=== PATIENT | male | born 1965 | race Hispanic/Latino ===

== ENCOUNTER 2020-06-16 09:59 | Observation (INO) | payer OTHER ==
[2020-06-16] MEDS ORDERED: LACTATED RINGERS 1,000 ML ONE (11:20)
[2020-06-16] MEDS ORDERED: HYDROmorphone 1 MG/1 ML INJ IV PRN ×2 (11:57)
[2020-06-16] MEDS ORDERED: ONDANSETRON 4 MG/2 ML INJ IV PRN (11:57)
--- NOTE | 2020-06-16 11:58 | Anesthesia Day of Surgery ---
Anesthesia Day of Surgery - Day of Surgery Patient Examined: Yes Patient H&P Reviewed: Yes Patient is NPO: Yes
--- NOTE | 2020-06-16 11:59 | Anesthesia Consultation ---
Anesthesia Consult and Med Hx Date of service: 06/16/20 - Airway Anesthetic Teeth Evaluation: Poor, Chipped, Crowns ROM Head & Neck: Adequate Mental/Hyoid Distance: Adequate Mallampati Class: Class II Intubation Access Assessment: Good - Pre-Operative Health Status ASA Pre-Surgery Classification: ASA2 Proposed Anesthetic Plan: General - Pulmonary Hx Respiratory Symptoms: No (+2FS) - Gastrointestinal Hx Gastroesophageal Reflux Disease: Yes - Endocrine Hx Renal Disease: Yes (stones) - Other Systems Hx Obesity: No
[2020-06-16] MEDS ORDERED: LACTATED RINGERS 1,000 ML IV SCH (12:00)
[2020-06-16] MEDS ORDERED: ceFAZolin/STERILE WATER 2 GM/20 ML SYRINGE IV NR (12:44)
[2020-06-16] MEDS ORDERED: GLYCOPYRROLATE 0.4 MG/2 ML INJ ONE (16:13)
[2020-06-16] MEDS ORDERED: PHENYLEPHRINE/NS 1,000 MCG/10 ML SYRINGE (OR USE) IV ONE (16:13)
[2020-06-16] MEDS ORDERED: LIDOCAINE MPF (2%) 20 MG/1 ML VIAL 5 ML ONE (16:13)
[2020-06-16] MEDS ORDERED: ONDANSETRON 4 MG/2 ML INJ ONE (16:13)
[2020-06-16] MEDS ORDERED: SUCCINYLCHOLINE CHLORIDE 200 MG/10 ML INJ MDV ONE (16:13)
[2020-06-16] MEDS ORDERED: propofoL 200 MG/20 ML VIAL IV ONE (16:13)
[2020-06-16] MEDS ORDERED: dexAMETHasone 20 MG/5 ML VIAL ONE (16:13)
[2020-06-16] MEDS ORDERED: fentaNYL 100 MCG/2 ML INJ ONE (16:13)
[2020-06-16] MEDS ORDERED: ONDANSETRON 4 MG ODT TAB PO PRN (16:39)
[2020-06-16] MEDS ORDERED: ZOLPIDEM 5 MG TAB PO PRN (16:39)
--- NOTE | 2020-06-16 16:39 | Post Operative Note ---
Date of procedure: 06/16/20 Pre-op diagnosis: l ureterl stone large Post-op diagnosis: same Findings: as above Procedure: cysto rpg Anesthesia: GETA Surgeon: BERNADETTE CHEN Estimated blood loss: none Pathology: none Specimen disposition: to lab Condition: stable
[2020-06-16] MEDS ORDERED: IOHEXOL 300 MG/ML 100ML IV ONE (16:46)
[2020-06-16] MEDS ORDERED: WATER FOR IRRIG STERILE 2000 ML IR ONE (16:51)
--- NOTE | 2020-06-16 17:47 | Fluoroscopy Report ---
INTRAOPERATIVE FLUOROSCOPY: RETROGRADE UROGRAPHY INDICATION / CLINICAL INFORMATION: HYDRONEPHROSIS/ URETERAL STONE. TECHNIQUE: Intraoperative spot images were obtained during the procedure. FINDINGS: Images show retrograde pyelogram on the left with a large left ureteral stone. 15 cc Omnipaque 300 us ed. See operative/procedure note by performing physician for full details. Fluoroscopy Time: 3.1 minutes. Fluoroscopy Images: 4. Signer Name: Simba Charles MD Signed: 06/16/2020 5:43 PM Workstation Name: [id number]
--- NOTE | 2020-06-16 18:11 | Operative Report ---
PREOPERATIVE DIAGNOSIS: Huge left mid ureteral stone, previous upper ureteral stone. POSTOPERATIVE DIAGNOSES: Huge left mid ureteral stone, previous upper ureteral stone with severe impaction and hydronephrosis. PROCEDURE: Cystoscopy, attempted stent. SURGEON: Dr. Irwin. ANESTHESIA: General. FINDINGS: This is a gentleman with large stone, really no pain, history of prostate cancer. All options were discussed. He has had this for I suspect very long time. DESCRIPTION OF PROCEDURE: The patient was brought to the operating table. Following induction of anesthesia, placed in lithotomy position, prepped and draped in usual sterile fashion. Cystourethroscopy showed no bladder lesions. Retrograde showed severe obstruction, but there was dye that went above it. We using an open-ended, we got up to the stone and tried with a Glidewire to get past the stone. Almost immediately coiled back around the stone and there was a little extravasation. We tried even with two 5 wire. Within 2-3 minutes, we saw that it would be too difficult likely did not want to injure the ureter, so we backed out. I had spoken to Dr. 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 This is a chronically hydronephrotic kidney. Once we get the __ tube and we could see whether or not it is salvageable and if there is function in the kidney. Otherwise, he may need a nephrectomy versus an ureterolithotomy or percutaneous nephrolithotomy. He tolerated the procedure well, but he will need antibiotics and percutaneous procedures and then a nuclear scan. JOB# [id number] [facility]
--- NOTE | 2020-06-16 19:03 | Post Anesthesia Evaluation ---
- Post Anesthesia Evaluation Patient Participated: Yes Airway Patent: Yes Stable Respiratory Function: Yes Nausea/Vomiting: No Temp > 96.8F: Yes Pain Manageable: Yes Adequeate Hydration: Yes Anesthesia Complications: No Block Receding Appropriately: Not Applicable Patient on Ventilator: No
--- NOTE | 2020-06-16 22:33 | Event Note ---
Date: 06/16/[address] Irwin Ordered CT abdomen and pelvis without contrast in prone positioning for planning. NPO after MN except sips of water with meds.
[2020-06-16] MEDS: NACL 0.45%/KCL 20 MEQ 20 MEQ/1,000 ML BAG IV SCH (22:44)
[2020-06-16] MEDS: DOCUSATE SODIUM 100 MG CAP PO SCH (22:45)
[2020-06-16] MEDS: ceFAZolin/NS 1 GM/50 ML 1 GM/50 ML BAG IV SCH (23:13)
--- NOTE | 2020-06-17 03:55 | Cat Scan Report ---
CT ABDOMEN AND PELVIS WITHOUT CONTRAST INDICATION / CLINICAL INFORMATION: Renal Calculi, please do in prone position, PCNU for PCNL. TECHNIQUE: Axial CT images were obtained through the abdomen and pelvis without IV contrast. All CT scans at this location are performed using CT dose reduction for ALARA by means of automated exposure control. COMPARISON: Retrograde urogram 06/16/20 FINDINGS: LOWER CHEST: No significant abnormality. LIVER: No significant abnormality. GALLBLADDER: No significant abnormality. BILE DUCTS: No significant abnormality. PANCREAS: No significant abnormality. SPLEEN: No significant abnormality. ADRENALS: No significant abnormality. RIGHT KIDNEY / URETER: No significant abnormality. LEFT KIDNEY / URETER: 8 mm obstructing stone in the mid left ureter with moderate left hydroureterone phrosis. STOMACH / SMALL BOWEL: No significant abnormality. COLON: No significant abnormality. Cecum is located in the left mid abdomen. APPENDIX: No significant abnormality. PERITONEUM: No free fluid. No free air. No fluid collection. LYMPH NODES: No significant adenopathy. AORTA / ARTERIES: No significant abnormality. IVC / VEINS: No significant abnormality. URINARY BLADDER: Multiple tiny calcifications along the anterior, and dependent portion of the urinar y bladder (patient in the prone position). REPRODUCTIVE ORGANS: No significant abnormality. ADDITIONAL FINDINGS: Small, bilateral, fat-containing inguinal hernias. SKELETAL SYSTEM: No significant abnormality. IMPRESSION: 1. 8 mm obstructing stone in the left mid ureter with moderate left hydroureteronephrosis. 2. Multiple tiny calcifications in the urinary bladder. Signer Name: Radha Martel MD Signed: 06/17/2020 3:51 AM Workstation Name: [id number]
[2020-06-17] MEDS: ceFAZolin/NS 1 GM/50 ML 1 GM/50 ML BAG IV SCH (06:01)
[2020-06-17] MEDS ORDERED: LIDOCAINE 2%/EPINEPHRINE 1:200,000 VIAL (20 ML) INFILTRATI ONE (09:09)
--- NOTE | 2020-06-17 09:25 | Progress Note ---
Assessment and Plan chronic obst ct noted for perc get nuc scan Subjective Date of service: 06/17/20 Principal diagnosis: hydro LEFT Objective - Constitutional Vitals: Vital Signs - 12hr 06/16/20 06/17/20 06/17/20 21:27 00:41 05:43 Temperature 98.5 F 98.2 F Pulse Rate 57 L 54 L Respiratory 18 18 Rate Blood Pressure 102/50 117/70 O2 Sat by Pulse 94 95 93 Oximetry 06/17/20 06/17/20 07:46 08:08 Temperature 98.2 F Pulse Rate 61 Respiratory 16 Rate Blood Pressure 135/86 O2 Sat by Pulse 96 96 Oximetry General appearance: Present: no acute distress - Respiratory Respiratory effort: normal - Gastrointestinal General gastrointestinal: Present: non-tender Medications & Allergies - Medications Allergies/Adverse Reactions: Allergies ciprofloxacin [From Cipro] Allergy (Verified 06/16/20 11:46) Swelling Home Medications: Home Medications Medication Instructions Recorded Confirmed Last Taken Type No Known Home Medications [No 06/16/20 06/16/20 Unknown History Reported Home Medications] Active Medications: Generic Name Dose Route Start Last Admin Trade Name Freq PRN Reason Stop Dose Admin Hydrocodone Bitart/Acetaminophen 2 each 06/16/20 16:39 Hydrocodone/Acetaminophen 5-325 Mg Tab PO Q4H PRN Pain, Moderate (4-6) Docusate Sodium 100 mg 06/16/20 22:00 06/16/20 22:45 Docusate Sodium 100 Mg Cap PO 100 mg BID JAVAD Administration Hydromorphone HCl 0.25 mg 06/16/20 11:57 Hydromorphone 1 Mg/1 Ml Inj IV 06/17/20 11:56 Q10MIN PRN Pain, Moderate (4-6) Hydromorphone HCl 0.5 mg 06/16/20 11:57 06/16/20 23:30 Hydromorphone 1 Mg/1 Ml Inj IV 06/17/20 11:56 0.5 mg Q10MIN PRN Administration Pain , Severe (7-10) Lactated Ringer's 1,000 mls @ 125 mls/hr 06/16/20 12:00 06/16/20 11:30 Lactated Ringers IV 125 mls/hr DIRECT JAVAD Administration Potassium Chloride/Sodium Chloride 20 meq in 1,000 mls @ 125 mls/hr 06/16/20 18:00 02/08/21 22:44 Ns 0.45/Kcl 20meq IV 125 mls/hr DIRECT JAVAD Administration Ondansetron HCl 4 mg 06/16/20 11:57 Ondansetron 4 Mg/2 Ml Inj IV ONCE PRN Nausea And Vomiting Ondansetron HCl 4 mg 06/16/20 16:39 Ondansetron 4 Mg Odt Tab PO Q8H PRN Nausea And Vomiting Zolpidem Tartrate 5 mg 06/16/20 16:39 Zolpidem 5 Mg Tab PO QHS PRN Sleep
[2020-06-17] MEDS: DOCUSATE SODIUM 100 MG CAP PO SCH (09:48)
[2020-06-17] MEDS: FAMOTIDINE 20 MG/2 ML INJ IV SCH (09:53)
[2020-06-17 11:26] LABS: Basophils % (Auto) 0.1 % (0.0-1.8); Hemoglobin 14.8 gm/dl (11.8-15.2); Lymphocytes % (Auto) 6.8 % (13.4-35.0); Mean Corpuscular HGB Conc 34 % (32-34); Mean Corpuscular Volume 93 fl (84-94); Monocytes # (Auto) 0.8 K/mm3 (0.0-0.8); Monocytes % (Auto) 5.3 % (0.0-7.3); Platelet Count 226 K/mm3 (140-440); Red Cell Distribution Width 13.3 % (13.2-15.2)
[2020-06-17 11:32] LABS: Calcium 10.1 mg/dL (8.4-10.2)
[2020-06-17] MEDS ORDERED: SODIUM CHLORIDE IRRI 500 ML 500 ML IR ONE (11:34)
[2020-06-17 11:37] LABS: INR 1.04 (0.87-1.13)
[2020-06-17 11:38] LABS: Partial Thromboplastin Time 27.2 Sec. (24.2-36.6)
[2020-06-17] MEDS ORDERED: SODIUM CHLORIDE 0.9% 500 ML 500 ML ONE (11:46)
--- NOTE | 2020-06-17 11:59 | Consultation ---
History of Present Illness - Reason for Consult Consult date: 06/17/20 renal cauli, hydronephrosis Requesting physician: BERNADETTE CHEN - History of Present Illness 55-year-old male with history of prostate cancer, tobacco abuse, renal calculi who presents with left large mid ureteral calculi status post unsuccessful cystoscopic attempt at passing a ureteral stent. Vascular interventional radiology consulted for nephrostomy tube placement. CT of the abdomen pelvis was ordered demonstrating a large left mid ureteral calculi with hydronephrosis. Upon my review, there appeared to be focal scarring of the kidney especially in the lower pole. Patient has left scrotal referred pain from his left mid ureteral calculi. No significant flank pain. Also has some referred pelvic pain. Past History Past Medical History: cancer (Prostate), other (Mild CKD, renal calculi, hydronephrosis) Past Surgical History: Other (Noncontributory) Social history: smoking Family history: other (Noncontributory) Medications and Allergies Allergies Allergy/AdvReac Type Severity Reaction Status Date / Time ciprofloxacin [From Cipro] Allergy Swelling Verified 06/16/20 11:46 Home Medications Medication Instructions Recorded Confirmed Last Taken Type No Known Home Medications [No 06/16/20 06/16/20 Unknown History Reported Home Medications] Active Meds: Active Medications Hydrocodone Bitart/Acetaminophen (Hydrocodone/Acetaminophen 5-325 Mg Tab) 2 each PO Q4H PRN PRN Reason: Pain, Moderate (4-6) Docusate Sodium (Docusate Sodium 100 Mg Cap) 100 mg PO BID [facility] Last Admin: 06/17/20 09:48 Dose: Not Given Documented by: Famotidine (Famotidine 20 Mg/2 Ml Inj) 20 mg IV QDAY [facility] Last Admin: 06/17/20 09:53 Dose: 20 mg Documented by: Famotidine (Famotidine 20 Mg/2 Ml Inj) 20 mg IV ONCE [facility] Stop: 06/17/20 14:00 Lactated Ringer's (Lactated Ringers) 1,000 mls @ 125 mls/hr IV DIRECT [facility] Last Admin: 06/16/20 11:30 Dose: 125 mls/hr Documented by: Potassium Chloride/Sodium Chloride (Ns 0.45/Kcl 20meq) 20 meq in 1,000 mls @ 125 mls/hr IV DIRECT [facility] Last Admin: 06/16/20 22:44 Dose: 125 mls/hr Documented by: Piperacillin Sod/Tazobactam Sod (Zosyn/Ns 3.375gm/50ml) 3.375 gm in 50 mls @ 100 mls/hr IV ONCE ONE; Protocol Stop: 06/17/20 12:29 Ondansetron HCl (Ondansetron 4 Mg/2 Ml Inj) 4 mg IV ONCE PRN PRN Reason: Nausea And Vomiting Ondansetron HCl (Ondansetron 4 Mg Odt Tab) 4 mg PO Q8H PRN PRN Reason: Nausea And Vomiting Zolpidem Tartrate (Zolpidem 5 Mg Tab) 5 mg PO QHS PRN PRN Reason: Sleep Review of Systems All systems: negative (see HPI) Exam - Constitutional Vitals: Temp Pulse Resp BP Pulse Ox 98.2 F 61 16 135/86 96 06/17/20 07:46 06/17/20 07:46 06/17/20 07:46 06/17/20 07:46 06/17/20 08:08 General appearance: Present: mild distress (Left pelvic and scrotal discomfort) - EENT Eyes: Present: EOM intact ENT: hearing intact - Respiratory Respiratory effort: normal - Extremities Extremities: normal temperature, normal color - Abdominal General gastrointestinal: Present: other (No CVT) - Psychiatric Psychiatric: appropriate mood/affect, cooperative Results - Labs CBC & Chem 7: 06/17/20 10:50 06/17/20 10:50 Labs: Abnormal lab results 06/17/20 06/17/20 Range/Units 10:50 10:50 WBC 14.8 H (4.5-11.0) K/mm3 Lymph % (Auto) 6.8 L (13.4-35.0) % Lymph # (Auto) 1.0 L (1.2-5.4) K/mm3 Seg Neutrophils % 87.8 H (40.0-70.0) % Seg Neutrophils # 13.0 H (1.8-7.7) K/mm3 Glucose 125 H (75-100) mg/dL - Imaging and Cardiology CT scan - abdomen: report reviewed, image reviewed Assessment and Plan 55-year-old male who presents for left ureteral occlusion with subsequent hydronephrosis and hydroureter. Plan for left PCN. N.p.o. except sips of water with meds. Will have nuclear medicine study by Dr. Chen which will be performed at this time or at a later time, and if there is preserved function, may have open stone removal versus PCNL. Plan for nephrostomy tube today. Plan discussed in detail with patient. Risks, benefits, and alternatives discussed.
[2020-06-17] MEDS ORDERED: PIPERACILLIN/TAZOBACTAM 3.375 3.375 GM/50 ML BAG IV ONE (12:00)
[2020-06-17] MEDS ORDERED: FAMOTIDINE 20 MG/2 ML INJ IV SCH (12:00)
[2020-06-17] MEDS: fentaNYL 100 MCG/2 ML INJ ONE ×3 (12:35→12:52)
[2020-06-17] MEDS: MIDAZOLAM 2 MG/2 ML INJ ONE ×2 (12:35→12:52)
[2020-06-17] MEDS: LIDOCAINE (2%) 20 MG/1 ML VIAL 20 ML MDV INFILTRATI ONE ×2 (12:43→12:53)
--- NOTE | 2020-06-17 13:26 | Operative Report ---
Operative Report Operative Report: EXAM: 1. Ultrasound and fluoroscopic guided access of the posterior calyx of the left kidney 2. Diagnostic injection of the left kidney through the access needle 3. Nephrostogram of the left kidney and selection of the distal ureter with ureterogram 4. Percutaneous nephrostomy tube placement of the left kidney DATE: 06/17/2020 OCCUPATIONAL HEALTH AND SAFETY ADVISER: MAGO QUINTEROS MD INDICATION: Left hydronephrosis and hydroureter MEDICATIONS: Please see nursing report for full details. DEVICES: 8 [place] nephrostomy tube CONTRAST: Please see [employer] report for full details. All contrast was injected into the renal collecting system. PROCEDURE: The risks, benefits, and alternatives were discussed with the patient; written i nformed consent was obtained. The patient's back was prepped and draped in a sterile fashion. The patient's puncture site was anesthetized with lidocaine. Under direct ultrasound guidance, the left best visualized posterior calyx was accessed with a 21-gauge needle. Urine was aspirated. Contrast was injected demonstrating hydronephrosis and a partially duplicated system with hydroureter. 0.018 inch wire was passed into the collecting system. Needle was exchanged for a 6 [place] Accu stick system. 6 [place] Accustick system was advanced over the wire and passed into the collecting system. Wire, inner dilator and cannula were removed. Contrast was injected confirming position within the collecting system. Nephrostogram was performed demonstrating mild to moderate hydronephrosis with hydroureter and a large mid ureteral occlusive calculi. 4 [place] angled catheter and Glidewire were then used to cross the left mid ureteral occlusive calculi and the catheter was advanced distally. Contrast was injected confirming positioning in the ureter. 0.035 inch Amplatz wire was advanced through the catheter and the transitional dilator and catheter was removed. Serial dilatation was performed. 8 [place] nephrostomy tube was advanced over the wire. Wire was removed. [place] loop was performed in the renal pelvis. Contrast was injected into the nephrostomy tube confirming position within the collecting system. Contrast was aspirated. The nephrostomy tube was sutured in place with Ethilon. Sterile dressing applied. Patient tolerated the procedure well. She was transferred to the floor in stable condition. FINDINGS: Please see procedure note above. IMPRESSION: 1. Successful nephrostogram of the left kidney demonstrating mild to moderate left hydroureter and hydronephrosis. 2. Percutaneous nephrostomy tube placement in a posterior calyx of the left kidney.
[2020-06-17] MEDS: HYDROcodone/ACETAMINOPHEN 5-325 MG TAB PO PRN (18:26)
[2020-06-18] MEDS: NACL 0.45%/KCL 20 MEQ 20 MEQ/1,000 ML BAG IV SCH (01:30)
[2020-06-18] MEDS: DOCUSATE SODIUM 100 MG CAP PO SCH ×2 (01:31→09:58)
[2020-06-18] MEDS: FAMOTIDINE 20 MG/2 ML INJ IV SCH (10:51)
--- NOTE | 2020-06-18 11:08 | Nuclear Medicine Report ---
KIDNEY IMAGING MORPHOLOGY WITH VASCULAR FLOW AND FUNCTION INDICATION / CLINICAL INFORMATION: Large left renal stone with left hydronephrosis. Evaluate renal function. TECHNIQUE: Following IV administration of 5.4 mCi [id number], sequential dynamic images of the kidneys were obt ained in the posterior projection. The ordering physician requested that no Lasix be administered. Ti me activity whole kidney curves were analyzed. COMPARISON: CT abdomen and pelvis without contrast from 06/16/2020. FINDINGS: There is homogeneous distribution of the radiopharmaceutical within the renal cortex of each kidney. The right kidney is similar in size as the left kidney. DIFFERENTIAL FUNCTION: Right: 77.6% Left: 22.4% Right ERPF (ml/min) = not measured Left ERPF (ml/min) = not measured TOTAL ERPF (ml/min) = not measured RIGHT: Ujcm-[id number] activity: 29 minutes, prolonged T1/2: Not provided Ureter: Not well-visualized LEFT: Nsbr-ac-fgbk activity: 27 minutes, prolonged T1/2: Not provided Ureter: Not visualized. Additional Findings: None. IMPRESSION: 1. Decreased left renal function as above. 2. Prolonged time to peak activity for both kidneys as above. Signer Name: Victor M Scott MD Signed: 06/18/2020 11:04 AM Workstation Name: [id number]
[2020-06-18] MEDS: HYDROcodone/ACETAMINOPHEN 5-325 MG TAB PO PRN (12:50)
--- NOTE | 2020-06-18 14:59 | Progress Note ---
Assessment and Plan nt draining well ok for discharge perc vs open pt aware await nuc scan report Subjective Date of service: 06/18/20 Principal diagnosis: hydro LEFT Objective - Constitutional Vitals: Vital Signs - 12hr 06/18/20 06/18/20 06/18/20 05:52 08:10 11:34 Temperature 97.8 F 97.6 F 98.3 F Pulse Rate 65 58 L Respiratory 18 18 18 Rate Blood Pressure 171/105 134/71 148/88 O2 Sat by Pulse 100 94 Oximetry General appearance: Present: no acute distress - Respiratory Respiratory effort: normal Extremities: no ischemia - Gastrointestinal General gastrointestinal: Present: non-tender - Genitourinary Male genitourinary: normal - Labs CBC & Chem 7: 06/17/20 10:50 06/17/20 10:50 Medications & Allergies - Medications Allergies/Adverse Reactions: Allergies ciprofloxacin [From Cipro] Allergy (Verified 06/16/20 11:46) Swelling Home Medications: Home Medications Medication Instructions Recorded Confirmed Last Taken Type No Known Home Medications [No 06/16/20 06/16/20 Unknown History Reported Home Medications] Active Medications: Generic Name Dose Route Start Last Admin Trade Name Freq PRN Reason Stop Dose Admin Hydrocodone Bitart/Acetaminophen 2 each 06/16/20 16:39 06/18/20 12:50 Hydrocodone/Acetaminophen 5-325 Mg Tab PO 2 each Q4H PRN Administration Pain, Moderate (4-6) Docusate Sodium 100 mg 06/16/20 22:00 06/18/20 09:58 Docusate Sodium 100 Mg Cap PO Not Given BID JAVAD Famotidine 20 mg 06/17/20 10:00 06/18/20 10:51 Famotidine 20 Mg/2 Ml Inj IV 20 mg QDAY JAVAD Administration Lactated Ringer's 1,000 mls @ 125 mls/hr 06/16/20 12:00 06/16/20 11:30 Lactated Ringers IV 125 mls/hr DIRECT JAVAD Administration Potassium Chloride/Sodium Chloride 20 meq in 1,000 mls @ 125 mls/hr 06/16/20 18:00 06/18/20 01:30 Ns 0.45/Kcl 20meq IV 125 mls/hr DIRECT JAVAD Administration Ondansetron HCl 4 mg 06/16/20 11:57 Ondansetron 4 Mg/2 Ml Inj IV ONCE PRN Nausea And Vomiting Ondansetron HCl 4 mg 06/16/20 16:39 Ondansetron 4 Mg Odt Tab PO Q8H PRN Nausea And Vomiting Zolpidem Tartrate 5 mg 06/16/20 16:39 Zolpidem 5 Mg Tab PO QHS PRN Sleep
--- NOTE | 2020-06-18 15:04 | Discharge Summary ---
Short Stay Discharge Plan Activity: other (no straining ) Weight Bearing Status: Full Weight Bearing Diet: regular Wound: keep clean and dry, change dressing Special Instructions: other (neph tube care ) Durable Medical Equipment Needed Upon Discharge: other (L neph tube ) Follow up with: [facility] [Primary Care Provider] - 7 Days BERNADETTE CHEN MD [Staff Physician] - 7 Days
[2020-06-18 17:52] VITALS: BP 138/82
== END 2020-06-18 18:15 | disposition home or self-care (01) ==
LOC: OR 09:59 → 3A 16:39 → 3B 19:01
PROVIDERS: ADMIT Urology; ATTEND Urology
DX: N13.2 Hydronephrosis with renal and ureteral calculous obstruction (principal); C61 Malignant neoplasm of prostate
CPT/HCPCS: 36415; 50432; 52000; 74176; 74420; 78707; 80048; 82365; 85025; 85610; 85730; 93005; 96361; 96365; 96366; 96375; 96376; A4217; A9562; C1729; C1769; G0378; J0330; J0690; J1100; J1170; J2250; J2370; J2405; J2543; J2704; J3010; J7040; J7120; Q9967; 96374

== ENCOUNTER 2020-06-26 10:26 | Day surgery (SDC) | payer OTHER ==
[~2020-06-26 10:26] MED LIST: LACTATED RINGERS 1,000 ML IV SCH; MIDAZOLAM 2 MG/2 ML INJ IV NR
[2020-06-26] MEDS ORDERED: SUCCINYLCHOLINE CHLORIDE 200 MG/10 ML INJ MDV ONE (11:30)
[2020-06-26] MEDS ORDERED: ONDANSETRON 4 MG/2 ML INJ ONE (11:30)
[2020-06-26] MEDS ORDERED: ONDANSETRON 4 MG/2 ML INJ IV PRN (11:30)
[2020-06-26] MEDS ORDERED: HYDROcodone/ACETAMINOPHEN 5-325 MG TAB PO PRN (11:30)
[2020-06-26] MEDS ORDERED: fentaNYL 100 MCG/2 ML INJ IV PRN (11:30)
--- NOTE | 2020-06-26 11:30 | Anesthesia Day of Surgery ---
Anesthesia Day of Surgery - Day of Surgery Patient Examined: Yes Patient H&P Reviewed: Yes Patient is NPO: Yes
--- NOTE | 2020-06-26 11:30 | Anesthesia Consultation ---
Anesthesia Consult and Med Hx Date of service: 06/26/20 - Airway Anesthetic Teeth Evaluation: Poor, Chipped ROM Head & Neck: Adequate Mental/Hyoid Distance: Adequate Mallampati Class: Class III Intubation Access Assessment: Possibly Difficult (previous LMA 4) - Pulmonary Exam CTA: Yes - Cardiac Exam Cardiac Exam: RRR - Pre-Operative Health Status ASA Pre-Surgery Classification: ASA3 Proposed Anesthetic Plan: General - Pulmonary Hx Smoking: Yes (former smoker; currently uses chewing tobacco) Hx Respiratory Symptoms: No Hx Sleep Apnea: No ([place] PRE SCREEN LOW RISK) - Cardiovascular System Hx Hypertension: No Hx Heart Attack/AMI: No - Central Nervous System CVA: No - Gastrointestinal Hx Gastroesophageal Reflux Disease: Yes - Endocrine Hx Renal Disease: Yes (?CKD s/p nephrostomy tube placement) Hx Liver Disease: No Hx Insulin Dependent Diabetes: No Hx Non-Insulin Dependent Diabetes: No Hx Thyroid Disease: No - Other Systems Hx Obesity: No - Additional Comments Anesthesia Medical History Comments: Had cystoscopy under [place] at [facility] 06/17/20 without anesthetic complications.
[2020-06-26] MEDS ORDERED: fentaNYL 100 MCG/2 ML INJ ONE (11:36)
[2020-06-26] MEDS ORDERED: dexAMETHasone 20 MG/5 ML VIAL ONE (11:36)
[2020-06-26] MEDS ORDERED: propofoL 200 MG/20 ML VIAL IV ONE (11:36)
[2020-06-26] MEDS ORDERED: LIDOCAINE MPF (2%) 20 MG/1 ML VIAL 5 ML ONE (11:36)
[2020-06-26] MEDS ORDERED: ceFAZolin/STERILE WATER 2 GM/20 ML SYRINGE IV NR (12:00)
[2020-06-26] MEDS ORDERED: WATER FOR IRRIG STERILE 1,500 ML BOTTLE IR ONE (12:52)
[2020-06-26] MEDS ORDERED: WATER FOR IRRIG STERILE 2000 ML IR ONE (12:52)
--- NOTE | 2020-06-26 13:56 | Short Stay Summary ---
Short Stay Documentation Date of service: 06/26/20 - History H&P: obtained from office - Allergies and Medications Current Medications: Allergies ciprofloxacin [From Cipro] Allergy (Verified 06/16/20 11:46) Swelling Home Medications Medication Instructions Recorded Confirmed Last Taken Type No Known Home Medications [No 06/16/20 06/25/20 Unknown History Reported Home Medications] Active Medications Hydrocodone Bitart/Acetaminophen (Hydrocodone/Acetaminophen 5-325 Mg Tab) 2 each PO ONCE PRN PRN Reason: Pain, Moderate (4-6) Stop: 06/26/20 20:00 Cefazolin Sodium (Cefazolin/Sterile Water 2 Gm/20 Ml Syringe) 2 gm IV PREOP NR Stop: 06/26/20 23:01 Fentanyl (Fentanyl 100 Mcg/2 Ml Inj) 50 mcg IV Q5MIN PRN PRN Reason: Pain , Severe (7-10) Stop: 06/26/20 23:00 Lactated Ringer's (Lactated Ringers) 1,000 mls @ 100 mls/hr IV DIRECT JAVAD Stop: 06/26/20 23:59 Last Admin: 06/26/20 11:35 Dose: 100 mls/hr Documented by: Midazolam HCl (Midazolam 2 Mg/2 Ml Inj) 2 mg IV PREOP NR Stop: 06/26/20 23:00 Last Admin: 06/26/20 12:03 Dose: 2 mg Documented by: Ondansetron HCl (Ondansetron 4 Mg/2 Ml Inj) 4 mg IV ONCE PRN PRN Reason: Nausea And Vomiting Stop: 06/26/20 22:00 - Brief post op/procedure progress note Date of procedure: 06/26/20 Pre-op diagnosis: left ureteral stone---impacted, perc tube Post-op diagnosis: same Procedure: left ESWL, cysto, left stent---staged Anesthesia: GETA Surgeon: JOSIAH AYON Condition: stable - Hospital course Hospital course: bactrim,ultram,norco,post op info on chart - Disposition Condition at discharge: Stable Disposition: DC-01 TO HOME OR SELFCARE Short Stay Discharge Plan Follow up with: [facility] [Primary Care Provider] - 7 Days
--- NOTE | 2020-06-26 14:29 | Operative Report ---
PREOPERATIVE DIAGNOSIS: Left mid ureteral impacted stone, status post nephrostomy tube. POSTOPERATIVE DIAGNOSIS: Left mid ureteral impacted stone, status post nephrostomy tube. PROCEDURE: Left extracorporal shock wave lithotripsy, cystoscopy, double-J stent placement (6-Macanese 22 cm with a short internal string). SURGEON: Rd Smith MD ANESTHESIA: General. ESTIMATED BLOOD LOSS: Minimal. FLUIDS: Crystalloid. COMPLICATIONS: No complications. INDICATIONS: This 55-year-old gentleman seen by Dr. Irwin in the office with an impacted stone. He underwent cystoscopy, attempted stent placement and ultimately ended up with a nephrostomy tube. He presents now for lithotripsy and stent placement, staged procedure. DESCRIPTION OF PROCEDURE: The patient was taken to the operative suite, placed in a supine position. After adequate general anesthesia, his 1 cm stone was localized in 2 planes using fluoroscopy. Extracorporal shock wave lithotripsy was administered with a maximum kV of 8 and 3000 shocks. There was some fragmentation of his stone. At that point, we put him in dorsal lithotomy and was prepped and draped. Cystoscopy with a 22-Macanese Storz cystoscope. I put 0.035 Glidewire and was gently advanced past the stone followed by a 6-Macanese 22 cm double-J stent with a short internal string. The patient tolerated the procedure well as bladder was drained. He was extubated and taken to recovery room. He will go home on Ultram, [place] and Bactrim. JOB# [id number] [facility]
[2020-06-26 14:34] VITALS: BP 148/91
--- NOTE | 2020-06-26 19:23 | Post Anesthesia Evaluation ---
- Post Anesthesia Evaluation Patient Participated: Yes Airway Patent: Yes Stable Respiratory Function: Yes Nausea/Vomiting: No Temp > 96.8F: Yes Pain Manageable: Yes Adequeate Hydration: Yes Anesthesia Complications: No
== END 2020-06-26 10:27 | disposition home or self-care (01) ==
LOC: OR 10:26
PROVIDERS: ATTEND Urology
DX: N13.2 Hydronephrosis with renal and ureteral calculous obstruction (principal); K21.9 Gastro-esophageal reflux disease without esophagitis; Z88.8 Allergy status to other drugs, medicaments and biological substances; Z87.891 Personal history of nicotine dependence; Z85.46 Personal history of malignant neoplasm of prostate; Z98.890 Other specified postprocedural states
CPT/HCPCS: 50590; 52332; A4217; C1758; C1769; C2617; J0330; J0690; J1100; J2250; J2405; J2704; J3010; J7120

== ENCOUNTER 2020-07-08 09:39 | Inpatient (IN) | payer OTHER ==
--- NOTE | 2020-07-08 10:58 | XRay Report ---
CHEST 1 VIEW INDICATION: PRE OP. COMPARISON: None FINDINGS: Support devices: None. Heart: Within normal limits. Lungs/Pleura: No acute air space or interstitial disease. Additional findings: None. IMPRESSION: No acute findings. Signer Name: Neal Montano Jr, MD Signed: 07/08/2020 10:53 AM Workstation Name: [id number]
[2020-07-08 11:03] LABS: Basophils % (Auto) 0.4 % (0.0-1.8); Eosinophils # (Auto) 0.3 K/mm3 (0.0-0.4); Eosinophils % (Auto) 5.1 % (0.0-4.3); Hematocrit 41.5 % (35.5-45.6); Hemoglobin 14.5 gm/dl (11.8-15.2); Lymphocytes # (Auto) 1.4 K/mm3 (1.2-5.4); Lymphocytes % (Auto) 22.7 % (13.4-35.0); Mean Corpuscular HGB Conc 35 % (32-34); Mean Corpuscular Volume 92 fl (84-94); Monocytes # (Auto) 0.6 K/mm3 (0.0-0.8); Monocytes % (Auto) 9.1 % (0.0-7.3); Platelet Count 238 K/mm3 (140-440); Red Blood Count 4.51 M/mm3 (3.65-5.03)
[2020-07-08 11:16] LABS: Calcium 9.7 mg/dL (8.4-10.2)
[2020-07-08 11:33] LABS: INR 0.96 (0.87-1.13); Partial Thromboplastin Time 27.9 Sec. (24.2-36.6)
--- NOTE | 2020-07-08 13:08 | Emergency Department Report ---
ED Abdominal Pain HPI - General Chief Complaint: Medical Clearance Stated Complaint: KIDNEY PAIN Time Seen by Provider: 07/08/20 10:24 Source: patient Mode of arrival: Ambulatory Limitations: No Limitations - History of Present Illness Initial Comments: Patient is 55-year-old male with left nephrostomy tube secondary to impacted calculus with hydronephrosis. Patient presented to the ER complaining of left flank pain. Patient already discussed with his urologist Dr. Leone who advised him to come to the ER for operation in the morning. Patient also will have surgery by Dr. Ian Vaca, vascular surgeon. Patient currently denying any fever or chills. No nausea or vomiting. Patient stated that he did not have any urine output for approximately 1 week through his penis all the urine coming through the nephrostomy tube. MD Complaint: flank pain -: days(s) Location: L flank Severity: moderate - Related Data Home Medications Medication Instructions Recorded Confirmed Last Taken No Known Home Medications [No 06/16/20 06/25/20 Unknown Reported Home Medications] Allergies Allergy/AdvReac Type Severity Reaction Status Date / Time ciprofloxacin [From Cipro] Allergy Swelling Verified 06/16/20 11:46 ED Review of Systems ROS: Stated complaint: KIDNEY PAIN Other details as noted in HPI Comment: All other systems reviewed and negative Constitutional: denies: chills, fever Respiratory: denies: cough, shortness of breath, SOB with exertion, SOB at rest Cardiovascular: denies: chest pain, palpitations Gastrointestinal: abdominal pain. denies: nausea, vomiting, diarrhea, constipation, hematemesis, melena, hematochezia Genitourinary: frequency Musculoskeletal: back pain Neurological: denies: headache, weakness ED Past Medical Hx - Past Medical History Previous Medical History?: Yes Hx Hypertension: No Hx Heart Attack/AMI: No Hx Congestive Heart Failure: No Hx Diabetes: No Hx GERD: Yes Hx Liver Disease: No Hx Renal Disease: Yes (?CKD s/p nephrostomy tube placement) Hx Kidney Stones: Yes Hx HIV: No - Social History Smoking Status: Never Smoker Substance Use Type: None - Medications Home Medications: Home Medications Medication Instructions Recorded Confirmed Last Taken Type No Known Home Medications [No 06/16/20 06/25/20 Unknown History Reported Home Medications] ED Physical Exam - General Limitations: No Limitations General appearance: alert, in no apparent distress - Head Head exam: Present: atraumatic, normocephalic, normal inspection - Eye Eye exam: Present: normal appearance, PERRL - ENT ENT exam: Present: normal exam, normal orophraynx, mucous membranes moist - Neck Neck exam: Present: normal inspection. Absent: tenderness, meningismus - Respiratory Respiratory exam: Present: normal lung sounds bilaterally - Cardiovascular Cardiovascular Exam: Present: regular rate, normal rhythm, normal heart sounds - GI/Abdominal GI/Abdominal exam: Present: soft, normal bowel sounds. Absent: distended, tenderness, guarding, rebound, rigid, organomegaly, mass, bruit, pulsatile mass, hernia - Extremities Exam Extremities exam: Present: normal inspection, full ROM, normal capillary refill. Absent: tenderness - Back Exam Back exam: Present: normal inspection, full ROM, CVA tenderness (L), other (Nephrostomy tube in place.). Absent: CVA tenderness (R), muscle spasm, paraspinal tenderness, vertebral tenderness ED Course Vital Signs 07/08/20 09:59 Temperature 97.6 F Pulse Rate 54 L Respiratory 18 Rate Blood Pressure 135/73 O2 Sat by Pulse 96 Oximetry ED Medical Decision Making - Lab Data Result diagrams: 07/08/20 10:34 07/08/20 10:34 - Medical Decision Making Patient is 55-year-old male with left nephrostomy tube secondary to impacted calculus with hydronephrosis. Patient presented to the ER complaining of left flank pain. Patient already discussed with his urologist Dr. Leone who advised him to come to the ER for operation in the morning. Patient also will have surgery by Dr. Ian frey, vascular surgeon. Patient currently denying any fever or chills. No nausea or vomiting. Labs reviewed and is unremarkable. Patient examined by Dr.David Vaca in the emergency room. Chest x-ray is unremarkable. I discussed the patient with Dr. Moreno, he agreed to admit the patient to medical service for further management. Critical care attestation.: If time is entered above; I have spent that time in minutes in the direct care of this critically ill patient, excluding procedure time. ED Disposition Clinical Impression: Left flank pain, Malfunction of nephrostomy tube Disposition: OP ADMIT IP TO THIS HOSP Is pt being admited?: Yes Condition: Stable Referrals: PRIMARY CARE,MD [Primary Care Provider] - 3-5 Days
[2020-07-08] MEDS ORDERED: ONDANSETRON 4 MG/2 ML INJ IV PRN (13:32)
[2020-07-08] MEDS ORDERED: ACETAMINOPHEN 325 MG TAB PO PRN (13:32)
[2020-07-08] MEDS ORDERED: oxyCODONE /ACETAMINOPHEN 5-325MG TAB PO PRN (13:32)
[2020-07-08] MEDS ORDERED: MORPHINE 4 MG/1 ML INJ IV PRN (13:32)
--- NOTE | 2020-07-08 13:33 | History and Physical Report ---
History of Present Illness Chief complaint: My side hurts History of present illness: 55 YO Male with GERD, Nephrolithiasis S/P Nephrostomy tube placement presents to ED for evaluation. Patient states "my left side hurts". Patient states that he has experienced left flank pain over the past 4 days with worsening symptoms over the same timeframe. Patient states that he was instructed by his urologist to seek further care at [facility]. Patient transported to [facility] via private vehicle for further care and evaluation of the aforementioned symptoms. The patient was seen and evaluated in the emergency department. All lab and imaging studies reviewed. Patient underwent CT scan of the abdomen and pelvis and was found to have a left obstructing renal stone, acute kidney injury. Interventional radiology consulted in ED. Patient is pending surgical intervention. Patient denies fever, chills, chest pain, palpitation, productive cough, skin rash, recent ill contacts, or known exposure to COVID-19. No prior admission for review. All medication listed at time of admission has been reconciled. Past History Past Medical History: GERD, other (See HPI) Past Surgical History: Other (Stent placement) Social history: single. denies: smoking, alcohol abuse, prescription drug abuse Family history: diabetes, hypertension Medications and Allergies Allergies Allergy/AdvReac Type Severity Reaction Status Date / Time ciprofloxacin [From Cipro] Allergy Swelling Verified 06/16/20 11:46 Home Medications Medication Instructions Recorded Confirmed Last Taken Type No Known Home Medications [No 06/16/20 07/08/20 Unknown History Reported Home Medications] Review of Systems Constitutional: no weight loss, no weight gain, no fever, no chills Ears, nose, mouth and throat: no ear pain, no ear discharge, no decreased hearing, no nose pain, no nasal congestion Cardiovascular: no chest pain, no palpitations, no rapid/irregular heart beat Respiratory: no cough, no excessive sputum, no shortness of breath, no dyspnea on exertion Gastrointestinal: abdominal pain, no nausea, no vomiting, no constipation Genitourinary Male: flank pain, no hematuria, no discharge, no urinary frequency, no nocturia, no incontinence Rectal: no pain, no incontinence Musculoskeletal: no shooting arm pain, no arm numbness/tingling, no shooting leg pain, no leg numbness/tingling Integumentary: no rash, no pruritis, no wounds, no jaundice, no boils Neurological: no head injury, no transient paralysis, no weakness, no numbness Psychiatric: no anxiety, no memory loss, no change in sleep habits, no insomnia Endocrine: no cold intolerance, no polyphagia, no excessive thirst, no polydipsia, no polyuria, no nocturia, no weight change Hematologic/Lymphatic: no easy bruising, no lymphedema Allergic/Immunologic: no urticaria, no wheezing, no anaphylaxis Exam - Constitutional Vitals: Temp Pulse Resp BP Pulse Ox 97.6 F 54 L 18 135/73 96 07/08/20 09:59 07/08/20 09:59 07/08/20 09:59 07/08/20 09:59 07/08/20 09:59 General appearance: Present: mild distress - EENT Eyes: Present: PERRL ENT: hearing intact, clear oral mucosa - Neck Neck: Present: supple, normal ROM - Respiratory Respiratory effort: normal Respiratory: bilateral: CTA - Cardiovascular Heart Sounds: Present: S1 & S2. Absent: rub, click - Extremities Extremities: pulses symmetrical, No edema Peripheral Pulses: within normal limits - Abdominal General gastrointestinal: Present: soft, non-tender, non-distended, normal bowel sounds Male genitourinary: Present: normal - Integumentary Integumentary: Present: clear, warm, dry - Musculoskeletal Musculoskeletal: gait normal, strength equal bilaterally - Psychiatric Psychiatric: appropriate mood/affect, intact judgment & insight - Neurologic Neurologic: CNII-XII intact, moves all extremities Results - Labs CBC & Chem 7: 07/08/20 10:34 07/08/20 10:34 Labs: Abnormal lab results 07/08/20 07/08/20 Range/Units 10:34 10:34 MCHC 35 H (32-34) % RDW 13.0 L (13.2-15.2) % [place] % (Auto) 9.1 H (0.0-7.3) % Eos % (Auto) 5.1 H (0.0-4.3) % Creatinine 1.6 H (0.8-1.3) mg/dL Assessment and Plan - Patient Problems (1) Malfunction of nephrostomy tube Current Visit: Yes Status: Acute Plan to address problem: Interventional radiology consulted, patient pending surgical intervention as per urology team. (2) TAI (acute kidney injury) Current Visit: Yes Status: Acute Plan to address problem: IV fluid resuscitation therapy, monitor urine output every shift, repeat BMP in a.m. to monitor serum creatinine as well as GFR. (3) GERD (gastroesophageal reflux disease) Current Visit: Yes Status: Acute Qualifiers: Esophagitis presence: without esophagitis Qualified Code(s): K21.9 - Gastro-esophageal reflux disease without esophagitis Plan to address problem: PPI therapy, supportive care. (4) Left flank pain Current Visit: Yes Status: Acute Plan to address problem: Suspected secondary to nephrolithiasis, supportive care, pain control, IV fluid resuscitation therapy, surgical intervention as per urology team. (5) DVT prophylaxis Current Visit: Yes Status: Acute Plan to address problem: SCD to bilateral lower extremities while in bed, patient is ambulatory.
--- NOTE | 2020-07-08 13:52 | Consultation ---
History of Present Illness - Reason for Consult Consult date: 07/08/20 PCN to PCNU Requesting physician: MARIA C VIVAS - History of Present Illness 55-year-old male with left nephrostomy tube secondary to impacted calculus with hydronephrosis. Patient presented to the ER complaining of left flank pain. Patient already discussed with his urologist Dr. Irwin who advised him to come to the ER for operation in the morning. Patient also will have surgery by Dr. Ian Vaca. Patient currently denying any fever or chills. No nausea or vomiting. Patient stated that he did not have any urine output for approximately 1 week through his penis all the urine coming through the nephrostomy tube. Contacted by emergency room and Dr. Irwin. Patient has left PCN and requires left PCNU for PCNL. Of note, patient has not had any urine output through his penis for the last week. He recently had a stent placed by Dr. Smith in the left ureter. Will need CT scan without contrast. We will plan for Coil Strapper today. ROS: Stated complaint: KIDNEY PAIN Other details as noted in HPI Comment: All other systems reviewed and negative Constitutional: denies: chills, fever Respiratory: denies: cough, shortness of breath, SOB with exertion, SOB at rest Cardiovascular: denies: chest pain, palpitations Gastrointestinal: abdominal pain. denies: nausea, vomiting, diarrhea, constipation, hematemesis, melena, hematochezia Genitourinary: frequency Musculoskeletal: back pain Neurological: denies: headache, weakness - Past Medical History Previous Medical History?: Yes Hx Hypertension: No Hx Heart Attack/AMI: No Hx Congestive Heart Failure: No Hx Diabetes: No Hx GERD: Yes Hx Liver Disease: No Hx Renal Disease: Yes (?CKD s/p nephrostomy tube placement) Hx Kidney Stones: Yes Hx HIV: No - Social History Smoking Status: Never Smoker Substance Use Type: None Medications and Allergies Allergies Allergy/AdvReac Type Severity Reaction Status Date / Time ciprofloxacin [From Cipro] Allergy Swelling Verified 06/16/20 11:46 Home Medications Medication Instructions Recorded Confirmed Last Taken Type No Known Home Medications [No 06/16/20 06/25/20 Unknown History Reported Home Medications] Active Meds: Active Medications Acetaminophen (Acetaminophen 325 Mg Tab) 650 mg PO Q4H PRN PRN Reason: Pain MILD(1-3)/Fever >100.5/COLES Morphine Sulfate (Morphine 4 Mg/1 Ml Inj) 2 mg IV Q8H PRN PRN Reason: Pain , Severe (7-10) Ondansetron HCl (Ondansetron 4 Mg/2 Ml Inj) 4 mg IV Q8H PRN PRN Reason: Nausea And Vomiting Oxycodone/Acetaminophen (Oxycodone /Acetaminophen 5-325mg Tab) 1 tab PO Q6H PRN PRN Reason: Pain, Moderate (4-6) Sodium Chloride (Sodium Chloride 0.9% 10 Ml Flush Syringe) 10 ml IV BID JAVAD Sodium Chloride (Sodium Chloride 0.9% 10 Ml Flush Syringe) 10 ml IV PRN PRN PRN Reason: LINE FLUSH Review of Systems All systems: negative (see HPI) Exam - Constitutional Vitals: Temp Pulse Resp BP Pulse Ox 97.6 F 54 L 18 135/73 96 07/08/20 09:59 07/08/20 09:59 07/08/20 09:59 07/08/20 09:59 07/08/20 09:59 General appearance: Present: no acute distress - EENT Eyes: Present: EOM intact ENT: hearing intact - Neck Neck: Present: supple - Respiratory Respiratory effort: normal - Extremities Extremities: normal temperature, normal color - Abdominal General gastrointestinal: Present: other (No costovertebral tenderness or suprapubic tenderness) - Psychiatric Psychiatric: appropriate mood/affect, cooperative Results - Labs CBC & Chem 7: 07/08/20 10:34 07/08/20 10:34 Labs: Abnormal lab results 07/08/20 07/08/20 Range/Units 10:34 10:34 MCHC 35 H (32-34) % RDW 13.0 L (13.2-15.2) % [place] % (Auto) 9.1 H (0.0-7.3) % Eos % (Auto) 5.1 H (0.0-4.3) % Creatinine 1.6 H (0.8-1.3) mg/dL Assessment and Plan 55-year-old male with prostate cancer with enlarged lymph nodes, and left ureteral stone with impaction requiring PCN. Since then had ureteral stent placed by Dr. Smith. Patient presents after not having urination for greater than 1 week with slightly increased renal function. Will need CT of the abdomen and pelvis without contrast. Will need PCN conversion to PCNU and possible ureteral stent removal. After PCNL tomorrow, patient may need Murillo catheter placement based on CT scan and ur ine output.
--- NOTE | 2020-07-08 14:36 | Cat Scan Report ---
CT ABDOMEN AND PELVIS WITHOUT CONTRAST INDICATION / CLINICAL INFORMATION: ABDOMINAL PAIN. TECHNIQUE: Axial CT images were obtained through the abdomen and pelvis without IV contrast. All CT scans at [facility] location are performed using CT dose reduction for ALARA by means of automated exposure control. COMPARISON: CT scan dated 06/17/2020 FINDINGS: LOWER CHEST: No acute abnormality LIVER: No significant abnormality. GALLBLADDER: No significant abnormality. BILE DUCTS: No significant abnormality. PANCREAS: No significant abnormality. SPLEEN: No significant abnormality. ADRENALS: No significant abnormality. RIGHT KIDNEY and URETER: No significant abnormality. LEFT KIDNEY and URETER: There is a left nephrostomy tube. There is a double-J ureteral stent on the l eft. There is a large stone in the mid left ureter at the level the sacral promontory measures approx imately 8 mm in diameter. This is unchanged in position when compared to prior CT. STOMACH and SMALL BOWEL: No significant abnormality. COLON: No significant abnormality. APPENDIX: Not visualized PERITONEUM: No free fluid. No free air. No fluid collection. LYMPH NODES: No significant adenopathy. AORTA and ARTERIES: No significant abnormality. IVC and VEINS: No significant abnormality. URINARY BLADDER: No significant abnormality. Previously noted bladder stones are no longer seen. REPRODUCTIVE ORGANS: No significant abnormality. ADDITIONAL FINDINGS: There is a small fat-containing left inguinal hernia. SKELETAL SYSTEM: No acute abnormality IMPRESSION: 1. Since the prior study there has been interval placement of a left nephrostomy tube and a double-J ureteral stent on the left. The large left ureteral stone is unchanged in size and position. Signer Name: Catrachito Little MD Signed: 07/08/2020 2:31 PM Workstation Name: [id number]
[2020-07-08] MEDS ORDERED: HEPARIN/NS 5000 UNIT/500ML 500 ML IR ONE (15:46)
[2020-07-08] MEDS ORDERED: HEPARIN/NS 5000 UNIT/500ML 0 ML IR ONE (15:46)
[2020-07-08] MEDS ORDERED: SODIUM CHLORIDE 0.9% 500 ML 500 ML ONE (16:20)
[2020-07-08] MEDS ORDERED: LIDOCAINE (2%) 20 MG/1 ML VIAL 20 ML MDV INFILTRATI ONE (17:07)
[2020-07-08] MEDS ORDERED: SODIUM CHLORIDE IRRI 500 ML 500 ML IR ONE (17:09)
[2020-07-08] MEDS ORDERED: cefTRIAXone/NS 1 GM/50 ML 1 GM/50 ML BAG IV SCH (17:30)
[2020-07-08] MEDS: fentaNYL 100 MCG/2 ML INJ ONE ×2 (17:45→17:57)
[2020-07-08] MEDS: MIDAZOLAM 2 MG/2 ML INJ ONE ×2 (17:45→17:57)
[2020-07-08] MEDS ORDERED: ALUM-MAG HYDROXIDE-SIMETHICONE 200-200-20MG/5ML ORAL LIQD 30 ML ONE (18:15)
[2020-07-08] MEDS ORDERED: FAMOTIDINE 20 MG/2 ML INJ IV ONE (18:21)
--- NOTE | 2020-07-08 18:30 | Post Operative Note ---
Date of procedure: 07/08/20 Pre-op diagnosis: Hydronephrosis Post-op diagnosis: same Procedure: 1. Conversion of the left nephrostomy tube to nephroureteral tube Anesthesia: local (With conscious sedation) Surgeon: MAGO QUINTEROS Estimated blood loss: minimal Condition: stable Disposition: floor
--- NOTE | 2020-07-08 18:30 | Operative Report ---
Operative Report Operative Report: EXAM: Conversion of left nephrostomy tube to nephroureteral catheter DATE: 07/08/2020 ORANGE PICKING SUPERVISOR: MAGO QUINTEROS MD INDICATION: PCN conversion to PCNU for PCNL for large ureteral calculi with PCN malfunction. MEDICATIONS: Please see nursing report for full details. DEVICES: 5 Malian pigtail catheter used as nephroureteral catheter CONTRAST: Please see Fire Captain report for full details. PROCEDURE: The risks, benefits, and alternatives were discussed with the patient; written informed consent was obtained. The left flank was prepped and draped in a sterile fashion and the left PCN was prepped and draped in a sterile fashion. Contrast was injected through the nephrostomy tube demonstrated decompressed kidney collecting system with a left-sided ureteral stent and a left mid ureteral large calculi. 0.035 inch wire was passed through the nephrostomy tube and the nephrostomy tube was removed over the wire. Angled cath was advanced over the wire and used to select the ureter. 0.035 inch wire was passed into the ureter. 6 Malian 23 cm sheath was advanced over the wire and adjacent to the stone. The ureter was selected with an angled catheter and a Glidewire and after manipulation, a Glidewire was passed beyond the large mid ureteral stone but the angled catheter would not pass. Trailblazer was advanced over the wire into the bladder. Contrast was injected confirming position. 0.035 inch Amplatz wire was advanced into the bladder. Sheath and Trailblazer were removed and pigtail catheter was advanced over the wire and positioned in the bladder. Contrast was injected confirming position. There was distal migration of the indwelling ureteral stent. At this point, the pigtail catheter was capped and sutured to the skin with 2-0 Ethilon. Patient tolerated the procedure well. Sterile dressing applied. No immediate postprocedural complications. Patient was then scheduled for PCNL tomorrow. FINDINGS: Please see procedure note above. IMPRESSION: Successful conversion of left nephrostomy tube to left nephroureteral catheter.
[2020-07-09] MEDS ORDERED: HYDROmorphone 1 MG/1 ML INJ IV PRN (04:07)
[2020-07-09 04:14] LABS: Basophils % (Auto) 0.3 % (0.0-1.8); Eosinophils # (Auto) 0.3 K/mm3 (0.0-0.4); Eosinophils % (Auto) 3.8 % (0.0-4.3); Hematocrit 39.5 % (35.5-45.6); Hemoglobin 14.1 gm/dl (11.8-15.2); Lymphocytes # (Auto) 1.7 K/mm3 (1.2-5.4); Lymphocytes % (Auto) 18.7 % (13.4-35.0); Mean Corpuscular HGB Conc 36 % (32-34); Mean Corpuscular Volume 91 fl (84-94); Monocytes # (Auto) 0.7 K/mm3 (0.0-0.8); Monocytes % (Auto) 7.8 % (0.0-7.3); Platelet Count 228 K/mm3 (140-440); Red Blood Count 4.32 M/mm3 (3.65-5.03); Red Cell Distribution Width 13.1 % (13.2-15.2)
[2020-07-09 04:36] LABS: Calcium 8.5 mg/dL (8.4-10.2)
[2020-07-09] MEDS ORDERED: NALOXONE 0.4 MG/1 ML INJ ONE (09:51)
[2020-07-09] MEDS ORDERED: NALOXONE 0.4 MG/1 ML INJ IV ONE (09:51)
[2020-07-09] MEDS ORDERED: SODIUM CHLORIDE 0.9% 500 ML 500 ML IV NR (10:31)
[2020-07-09] MEDS ORDERED: SODIUM CHLORIDE 0.9% 1000 ML 1,000 ML ONE ×2 (10:50→14:37)
[2020-07-09] MEDS ORDERED: FAMOTIDINE 20 MG/2 ML INJ IV NR (11:17)
--- NOTE | 2020-07-09 11:21 | Anesthesia Consultation ---
Anesthesia Consult and Med Hx Date of service: 07/09/20 - Airway Anesthetic Teeth Evaluation: Poor, Chipped ROM Head & Neck: Adequate Mental/Hyoid Distance: Adequate Mallampati Class: Class III Intubation Access Assessment: Possibly Difficult - Pre-Operative Health Status ASA Pre-Surgery Classification: ASA2 Proposed Anesthetic Plan: General - Pulmonary Hx Smoking: Yes (former smoker now uses chewing tobacco) Hx Respiratory Symptoms: No Hx Sleep Apnea: No (EVERETT PRE SCREEN LOW RISK) - Cardiovascular System Hx Hypertension: No Hx Heart Attack/AMI: No - Central Nervous System CVA: No - Gastrointestinal Hx Gastroesophageal Reflux Disease: Yes - Endocrine Hx Renal Disease: Yes (TAI vs CKD) Hx Liver Disease: No Hx Insulin Dependent Diabetes: No Hx Non-Insulin Dependent Diabetes: No Hx Thyroid Disease: No - Other Systems Hx Obesity: No - Additional Comments Anesthesia Medical History Comments: No hx anesthetic complications. Code met called to patient's room this morning. He reports that he felt flushed and dizzy after receiving IV dilaudid. Nursing note regarding the incident reviewed. VS within normal range.
--- NOTE | 2020-07-09 11:21 | Anesthesia Day of Surgery ---
Anesthesia Day of Surgery - Day of Surgery Patient Examined: Yes Patient H&P Reviewed: Yes Patient is NPO: Yes
[2020-07-09] MEDS ORDERED: ONDANSETRON 4 MG/2 ML INJ IV PRN (11:22)
[2020-07-09] MEDS ORDERED: fentaNYL 100 MCG/2 ML INJ IV PRN (11:22)
[2020-07-09] MEDS ORDERED: ROCURONIUM 50 MG/5 ML INJ IV ONE (11:29)
[2020-07-09] MEDS ORDERED: propofoL 200 MG/20 ML VIAL IV ONE (11:29)
[2020-07-09] MEDS ORDERED: MIDAZOLAM 2 MG/2 ML INJ ONE (11:29)
[2020-07-09] MEDS ORDERED: ceFAZolin/STERILE WATER 2 GM/20 ML SYRINGE IV NR (12:00)
[2020-07-09] MEDS ORDERED: dexAMETHasone 20 MG/5 ML VIAL ONE (12:15)
[2020-07-09] MEDS ORDERED: LIDOCAINE MPF (2%) 20 MG/1 ML VIAL 5 ML ONE (12:15)
[2020-07-09] MEDS ORDERED: ONDANSETRON 4 MG/2 ML INJ ONE ×2 (12:15→15:47)
[2020-07-09] MEDS ORDERED: ePHEDrine SULFATE 50 MG/1 ML INJ ONE (12:41)
[2020-07-09] MEDS ORDERED: MINERAL OIL Light (Sterile) 10 ML VIAL TP ONE (12:46)
[2020-07-09] MEDS ORDERED: WATER FOR IRRIG STERILE 1,500 ML BOTTLE IR ONE (12:46)
[2020-07-09] MEDS ORDERED: IOHEXOL 300 MG/ML 50ML IV ONE (12:47)
[2020-07-09] MEDS ORDERED: SODIUM CHLORIDE 0.9% IRRIG SOLN 2000 ML IR ONE (12:52)
[2020-07-09] MEDS ORDERED: SODIUM CHLORIDE 0.9% 1000 ML 1,000 ML IV SCH (13:00)
[2020-07-09] MEDS ORDERED: FUROSEMIDE 40 MG/4 ML INJ ONE (14:27)
[2020-07-09] MEDS ORDERED: GLYCOPYRROLATE 0.4 MG/2 ML INJ ONE (14:38)
[2020-07-09] MEDS ORDERED: NEOSTIGMINE 10MG/10 ML INJ MDV ONE (14:38)
--- NOTE | 2020-07-09 15:35 | Fluoroscopy Report ---
INTRAOPERATIVE FLUOROSCOPY: NEPHROSTOMY/DILATATION INDICATION: STONE REMOVAL. TECHNIQUE: Intraoperative spot images were obtained during the procedure. FINDINGS: Images show wire in the right ureter with dilator. Please see procedure note for details. Fluoroscopy Time: 28 seconds. Fluoroscopy Images: 8. Signer Name: Lauro Ryan MD Signed: 07/09/2020 3:31 PM Workstation Name: [id number]
[2020-07-09] MEDS ORDERED: NALOXONE 0.4 MG/1 ML INJ IV PRN (16:28)
[2020-07-09] MEDS ORDERED: ACETAMINOPHEN 325 MG TAB PO PRN (16:28)
--- NOTE | 2020-07-09 16:28 | Post Operative Note ---
Date of procedure: 07/09/20 Pre-op diagnosis: left ureteral stone Post-op diagnosis: same Findings: huge stoen clots Procedure: perc ureeteroscopy laser Anesthesia: GETA Surgeon: BERNADETTE CHEN Estimated blood loss: 50-100ml Pathology: none Condition: stable Disposition: PACU
[2020-07-09 18:15] LABS: Hematocrit 41.6 % (35.5-45.6); Hemoglobin 14.6 gm/dl (11.8-15.2); Mean Corpuscular HGB Conc 35 % (32-34); Mean Corpuscular Volume 92 fl (84-94); Platelet Count 212 K/mm3 (140-440); Red Cell Distribution Width 13.2 % (13.2-15.2)
--- NOTE | 2020-07-09 19:25 | Progress Note ---
Assessment and Plan - Patient Problems (1) Malfunction of nephrostomy tube Current Visit: Yes Status: Acute Plan to address problem: Percutaneous nephrostomy tube and stone lasered (2) TAI (acute kidney injury) Current Visit: Yes Status: Acute Plan to address problem: IV fluids for now (3) GERD (gastroesophageal reflux disease) Current Visit: Yes Status: Acute Qualifiers: Esophagitis presence: without esophagitis Qualified Code(s): K21.9 - Gastro-esophageal reflux disease without esophagitis Plan to address problem: PPI therapy, supportive care. (4) Left flank pain Current Visit: Yes Status: Acute Plan to address problem: Suspected secondary to nephrolithiasis, supportive care, pain control, IV fluid resuscitation therapy, surgical intervention as per urology team. (5) DVT prophylaxis Current Visit: Yes Status: Acute Plan to address problem: SCD to bilateral lower extremities while in bed, patient is ambulatory. Subjective Date of service: 07/09/20 Principal diagnosis: Large renal and ureteral stone on the left side Interval history: 55 YO Male with GERD, Nephrolithiasis S/P Nephrostomy tube placement presents to ED for evaluation. Patient states "my left side hurts". Patient states that he has experienced left flank pain over the past 4 days with worsening symptoms over the same timeframe. Patient states that he was instructed by his urologist to seek further care at [facility]. Patient transported to [facility] via private vehicle for further care and evaluation of the aforementioned symptoms. The patient was seen and evaluated in the emergency department. All lab and imaging studies reviewed. Patient underwent CT scan of the abdomen and pelvis and was found to have a left obstructing renal stone, acute kidney injury. Interventional radiology consulted in ED. Patient is pending surgical intervention. Patient denies fever, chills, chest pain, palpitation, productive cough, skin rash, rece nt ill contacts, or known exposure to COVID-19. No prior admission for review. All medication listed at time of admission has been reconciled. 07/09/2020 S/p nephrostomy with a draining catheter Hematuria present The renal stone was broken into small pieces Percutaneous ureteroscopic stone lasered Objective - Constitutional Vitals: Vital Signs - 12hr 07/09/20 07/09/20 07/09/20 07:59 08:22 09:41 Temperature 97.6 F 97.7 F Pulse Rate 46 L Respiratory 17 20 18 Rate Blood Pressure 132/83 130/79 O2 Sat by Pulse 97 Oximetry 07/09/20 07/09/20 07/09/20 10:50 11:15 14:00 Temperature 97.4 F L 97.4 F L Pulse Rate 48 L 48 L Respiratory 22 22 20 Rate Blood Pressure 126/78 126/78 O2 Sat by Pulse 100 100 Oximetry 07/09/20 07/09/20 07/09/20 14:53 15:00 15:05 Temperature 97 F L Pulse Rate 68 57 L 79 Respiratory 15 15 14 Rate Blood Pressure 129/79 127/77 126/75 O2 Sat by Pulse 98 98 97 Oximetry 07/09/20 07/09/20 07/09/20 15:10 15:15 15:30 Temperature Pulse Rate 64 62 71 Respiratory 12 14 10 L Rate Blood Pressure 119/74 125/80 123/78 O2 Sat by Pulse 95 95 97 Oximetry 07/09/20 07/09/20 15:45 16:00 Temperature 97.6 F Pulse Rate 72 66 Respiratory 15 15 Rate Blood Pressure 113/71 130/80 O2 Sat by Pulse 98 98 Oximetry General appearance: Present: no acute distress, well-nourished - EENT Eyes: PERRL, EOM intact ENT: hearing intact, clear oral mucosa Ears: bilateral: normal - Neck Neck: supple, normal ROM - Respiratory Respiratory effort: normal Respiratory: bilateral: CTA - Breasts Breasts: normal - Cardiovascular Heart rate: 78 Rhythm: regular Heart Sounds: Present: S1 & S2. Absent: gallop, rub Extremities: pulses intact, No edema, normal color, Full ROM - Gastrointestinal General gastrointestinal: Present: soft, non-tender, non-distended, normal bowel sounds - Genitourinary Male genitourinary: normal - Integumentary Integumentary: clear, warm, dry - Musculoskeletal Musculoskeletal: 1, strength equal bilaterally - Neurologic Neurologic: moves all extremities - Psychiatric Psychiatric: memory intact, appropriate mood/affect, intact judgment & insight - Labs CBC & Chem 7: 07/10/20 13:52 07/10/20 13:52 Labs: Abnormal lab results 07/08/20 07/09/20 07/09/20 Range/Units 10:34 03:24 03:24 MCH 33 H (28-32) pg MCHC 36 H (32-34) % RDW 13.1 L (13.2-15.2) % [place] % (Auto) 7.8 H (0.0-7.3) % Sodium (137-145) mmol/L Carbon Dioxide (22-30) mmol/L Creatinine 1.5 H (0.8-1.3) mg/dL Glucose (75-100) mg/dL Calcium (8.4-10.2) mg/dL Crossmatch See Detail 07/09/20 07/09/20 Range/Units 17:58 17:58 MCH 33 H (28-32) pg MCHC 35 H (32-34) % RDW (13.2-15.2) % [place] % (Auto) (0.0-7.3) % Sodium 134 L (137-145) mmol/L Carbon Dioxide 20 L (22-30) mmol/L Creatinine 1.5 H (0.8-1.3) mg/dL Glucose 157 H (75-100) mg/dL Calcium 8.0 L (8.4-10.2) mg/dL Crossmatch
[2020-07-09 19:27] LABS: Total Cells Counted 100
[2020-07-09 19:28] LABS: RBC Morphology Normal
[2020-07-09] MEDS: ceFAZolin/NS 1 GM/50 ML 1 GM/50 ML BAG IV SCH (21:00)
[2020-07-09] MEDS: D5W/0.45% NACL/KCL 20 MEQ 20 MEQ/1,000 ML BAG IV SCH (21:01)
[2020-07-09] MEDS: PANTOPRAZOLE 40 MG INJ IV SCH (21:02)
[2020-07-09] MEDS: HYDROcodone/ACETAMINOPHEN 5-325 MG TAB PO PRN (21:03)
[2020-07-09] MEDS ORDERED: ZOLPIDEM 5 MG TAB PO PRN (22:00)
[2020-07-10] MEDS: ceFAZolin/NS 1 GM/50 ML 1 GM/50 ML BAG IV SCH ×3 (05:30→21:27)
[2020-07-10] MEDS: PANTOPRAZOLE 40 MG INJ IV SCH (09:02)
[2020-07-10] MEDS: D5W/0.45% NACL/KCL 20 MEQ 20 MEQ/1,000 ML BAG IV SCH ×2 (09:06→21:27)
--- NOTE | 2020-07-10 11:56 | Fluoroscopy Report ---
Fluoroscopy nephrostogram existing left HISTORY: Left renal stone FINDINGS: 6 minutes 28 seconds of fluoroscopy time was provided by radiology during left nephrostogra m by urology. 2 fluoroscopic images are presented demonstrating contrast agent in the proximal right collecting system. Left renal stone removal was performed per the operative notes. Please correlate w ith the procedural report as needed. Signer Name: Neal Montano Jr, MD Signed: 07/10/2020 11:52 AM Workstation Name: [id number]
[2020-07-10 14:16] LABS: Basophils % (Auto) 0.1 % (0.0-1.8); Eosinophils % (Auto) 0.1 % (0.0-4.3); Hematocrit 37.9 % (35.5-45.6); Hemoglobin 13.2 gm/dl (11.8-15.2); Lymphocytes # (Auto) 1.9 K/mm3 (1.2-5.4); Lymphocytes % (Auto) 11.6 % (13.4-35.0); Mean Corpuscular HGB Conc 35 % (32-34); Mean Corpuscular Volume 91 fl (84-94); Monocytes # (Auto) 1.2 K/mm3 (0.0-0.8); Monocytes % (Auto) 7.3 % (0.0-7.3); Platelet Count 240 K/mm3 (140-440); Red Blood Count 4.16 M/mm3 (3.65-5.03)
[2020-07-10] MEDS: PANTOPRAZOLE 40 MG TAB PO SCH (17:30)
[2020-07-10 17:58] LABS: Alanine Aminotransferase 12 units/L (7-56); Albumin 3.5 g/dL (3.9-5); BUN/Creatinine Ratio 11; Blood Urea Nitrogen 13 mg/dL (9-20); Calcium 8.7 mg/dL (8.4-10.2); Hemolysis Index 3
[2020-07-11 07:54] VITALS: BP 140/81
[2020-07-11] MEDS: PANTOPRAZOLE 40 MG TAB PO SCH (08:24)
[2020-07-11] MEDS: HYDROcodone/ACETAMINOPHEN 5-325 MG TAB PO PRN (08:35)
--- NOTE | 2020-07-11 08:59 | Progress Note ---
Assessment and Plan - Patient Problems left l 1)Left hydronephrosis Current Visit: Yes Status: Acute Plan to address problem: Percutaneous nephrostomy tube and stone lasered (2) TAI (acute kidney injury) Current Visit: Yes Status: Acute Plan to address problem: IV fluids for now (3) GERD (gastroesophageal reflux disease) Current Visit: Yes Status: Acute Qualifiers: Esophagitis presence: without esophagitis Qualified Code(s): K21.9 - Gastro-esophageal reflux disease without esophagitis Plan to address problem: PPI therapy, supportive care. (4) Left flank pain Current Visit: Yes Status: Acute Plan to address problem: Suspected secondary to nephrolithiasis, supportive care, pain control, IV fluid resuscitation therapy, surgical intervention as per urology team. (5) DVT prophylaxis Current Visit: Yes Status: Acute Plan to address problem: SCD to bilateral lower extremities while in bed, patient is ambulatory. Subjective Date of service: 07/10/20 Principal diagnosis: Left ureteral stone and hydronephrosis Interval history: 55 YO Male with GERD, Nephrolithiasis S/P Nephrostomy tube placement presents to ED for evaluation. Patient states "my left side hurts". Patient states that he has experienced left flank pain over the past 4 days with worsening symptoms over the same timeframe. Patient states that he was instructed by his urologist to seek further care at [facility]. Patient transported to [facility] via private vehicle for further care and evaluation of the aforementioned symptoms. The patient was seen and evaluated in the emergency department. All lab and imaging studies reviewed. Patient underwent CT scan of the abdomen and pelvis and was found to have a left obstructing renal stone, acute kidney injury. Interventional radiology consulted in ED. Patient is pending surgical intervention. Patient denies fever, chills, chest pain, palpitation, productive cough, skin rash, recent ill contacts, or known exposure to COVID-19. No prior admission for review. All medication listed at time of admission has been reconciled. 07/09/2020 S/p nephrostomy with a draining catheter Hematuria present The renal stone was broken into small pieces Percutaneous ureteroscopic stone lasered 07/10/2020 --Percutaneous ureteroscopic laser of the stone Hematuria ( Objective - Constitutional Vitals: Vital Signs - 12hr 07/11/20 07/11/20 07/11/20 00:34 04:00 07:00 Temperature 97.8 F 97.8 F 97.5 F L Pulse Rate 49 L 53 L 46 L Respiratory 18 18 18 Rate Blood Pressure 161/83 Blood Pressure 158/84 140/81 [Left] O2 Sat by Pulse 99 97 99 Oximetry General appearance: Present: no acute distress, well-nourished - EENT Eyes: PERRL, EOM intact ENT: hearing intact, clear oral mucosa Ears: bilateral: normal - Neck Neck: supple, normal ROM - Respiratory Respiratory effort: normal Respiratory: bilateral: CTA - Breasts Breasts: normal - Cardiovascular Heart rate: 78 Rhythm: regular Heart Sounds: Present: S1 & S2. Absent: gallop, rub Extremities: pulses intact, No edema, normal color, Full ROM - Gastrointestinal General gastrointestinal: Present: soft, non-tender, non-distended, normal bowel sounds - Genitourinary Male genitourinary: normal - Integumentary Integumentary: clear, warm, dry - Musculoskeletal Musculoskeletal: 1, strength equal bilaterally - Neurologic Neurologic: moves all extremities - Psychiatric Psychiatric: memory intact, appropriate mood/affect, intact judgment & insight - Labs CBC & Chem 7: 07/10/20 13:52 07/10/20 13:52 Labs: Abnormal lab results 07/10/20 07/10/20 Range/Units 13:52 13:52 WBC 16.5 H (4.5-11.0) K/mm3 MCHC 35 H (32-34) % RDW 13.0 L (13.2-15.2) % Lymph % (Auto) 11.6 L (13.4-35.0) % [place] # (Auto) 1.2 H (0.0-0.8) K/mm3 Seg Neutrophils % 80.9 H (40.0-70.0) % Seg Neutrophils # 13.3 H (1.8-7.7) K/mm3 Chloride 107.2 H (98-107) mmol/L Total Protein 6.2 L (6.3-8.2) g/dL Albumin 3.5 L (3.9-5) g/dL
--- NOTE | 2020-07-11 09:34 | Progress Note ---
Assessment and Plan - Patient Problems left l 1)Left hydronephrosis Current Visit: Yes Status: Acute Plan to address problem: Percutaneous nephrostomy tube and stone lasered (2) TAI (acute kidney injury) Current Visit: Yes Status: Acute Plan to address problem: IV fluids for now (3) GERD (gastroesophageal reflux disease) Current Visit: Yes Status: Acute Qualifiers: Esophagitis presence: without esophagitis Qualified Code(s): K21.9 - Gastro-esophageal reflux disease without esophagitis Plan to address problem: PPI therapy, supportive care. (4) History of prostate cancer Current Visit: Yes Status: Acute Plan to address problem: Will defer to urology (5) DVT prophylaxis Current Visit: Yes Status: Acute Plan to address problem: SCD to bilateral lower extremities while in bed, patient is ambulatory. Subjective Date of service: 07/11/20 Principal diagnosis: Left ureteral stone and hydronephrosis Interval history: 55 YO Male with GERD, Nephrolithiasis S/P Nephrostomy tube placement presents to ED for evaluation. Patient states "my left side hurts". Patient states that he has experienced left flank pain over the past 4 days with worsening symptoms over the same timeframe. Patient states that he was instructed by his urologist to seek further care at [facility]. Patient transported to [facility] via private vehicle for further care and evaluation of the aforementioned symptoms. The patient was seen and evaluated in the emergency department. All lab and imaging studies reviewed. Patient underwent CT scan of the abdomen and pelvis and was found to have a left obstructing renal stone, acute kidney injury. Interventional radiology consulted in ED. Patient is pending surgical intervention. Patient denies fever, chills, chest pain, palpitation, productive cough, skin rash, recent ill contacts, or known exposure to COVID-19. No prior admission for review. All medication listed at time of admission has been reconciled. 07/09/2020 S/p nephrostomy with a draining catheter Hematuria present The renal stone was broken into small pieces Percutaneous ureteroscopic stone lasered 07/10/2020 --Percutaneous ureteroscopic laser of the stone Hematuria ( 07/11/2020 Hematuria resolved Has urinary retention Objective - Constitutional Vitals: Vital Signs - 12hr 07/11/20 07/11/20 07/11/20 00:34 04:00 07:00 Temperature 97.8 F 97.8 F 97.5 F L Pulse Rate 49 L 53 L 46 L Respiratory 18 18 18 Rate Blood Pressure 161/83 Blood Pressure 158/84 140/81 [Left] O2 Sat by Pulse 99 97 99 Oximetry General appearance: Present: no acute distress, well-nourished - EENT Eyes: PERRL, EOM intact ENT: hearing intact, clear oral mucosa Ears: bilateral: normal - Neck Neck: supple, normal ROM - Respiratory Respiratory effort: normal Respiratory: bilateral: CTA - Breasts Breasts: normal - Cardiovascular Heart rate: 72 Rhythm: regular Heart Sounds: Present: S1 & S2. Absent: gallop, rub Extremities: pulses intact, No edema, normal color, Full ROM - Gastrointestinal General gastrointestinal: Present: soft, non-tender, non-distended, normal bowel sounds - Genitourinary Male genitourinary: normal - Integumentary Integumentary: clear, warm, dry - Musculoskeletal Musculoskeletal: 1, strength equal bilaterally - Neurologic Neurologic: moves all extremities - Psychiatric Psychiatric: memory intact, appropriate mood/affect, intact judgment & insight - Labs CBC & Chem 7: 07/10/20 13:52 07/10/20 13:52 Labs: Abnormal lab results 07/10/20 07/10/20 Range/Units 13:52 13:52 WBC 16.5 H (4.5-11.0) K/mm3 MCHC 35 H (32-34) % RDW 13.0 L (13.2-15.2) % Lymph % (Auto) 11.6 L (13.4-35.0) % [place] # (Auto) 1.2 H (0.0-0.8) K/mm3 Seg Neutrophils % 80.9 H (40.0-70.0) % Seg Neutrophils # 13.3 H (1.8-7.7) K/mm3 Chloride 107.2 H (98-107) mmol/L Total Protein 6.2 L (6.3-8.2) g/dL Albumin 3.5 L (3.9-5) g/dL
== END 2020-07-11 17:55 | disposition left against medical advice (07) | DRG 698 ==
LOC: ED 09:39 → 3B-SURG 13:32
PROVIDERS: ADMIT Internal Medicine; ATTEND Internal Medicine
PROC: 0T9730Z Drainage of Left Ureter with Drainage Device, Percutaneous Approach (ICD-10-PCS; principal; 2020-07-08)
PROC: 0TF78ZZ Fragmentation in Left Ureter, Via Natural or Artificial Opening Endoscopic (ICD-10-PCS; 2020-07-09)
PROC: BT121ZZ Fluoroscopy of Left Kidney using Low Osmolar Contrast (ICD-10-PCS; 2020-07-09)
DX: T83.092A Other mechanical complication of nephrostomy catheter, initial encounter (principal); N17.0 Acute kidney failure with tubular necrosis; N13.2 Hydronephrosis with renal and ureteral calculous obstruction; E87.1 Hypo-osmolality and hyponatremia; K21.9 Gastro-esophageal reflux disease without esophagitis; Z88.1 Allergy status to other antibiotic agents; F17.220 Nicotine dependence, chewing tobacco, uncomplicated; Z85.46 Personal history of malignant neoplasm of prostate; Z83.3 Family history of diabetes mellitus; Z82.49 Family history of ischemic heart disease and other diseases of the circulatory system; Y84.6 Urinary catheterization as the cause of abnormal reaction of the patient, or of later complication, without mention of misadventure at the time of the procedure
CPT/HCPCS: 36415; 50433; 71045; 74176; 80048; 80053; 82962; 85007; 85025; 85610; 85730; 86850; 86900; 86901; 86920; 93005; G0378; A4217; C1725; C1726; C1769; C9113; J0690; J0696; J1100; J1170; J1644; J1940; J2250; J2270; J2405; J2704; J2710; J3010; J7030; J7040; Q9967

== ENCOUNTER 2020-09-10 13:08 | Observation (INO) | payer OTHER ==
[2020-09-10] MEDS ORDERED: fentaNYL 100 MCG/2 ML INJ ONE ×2 (13:29→16:45)
[2020-09-10] MEDS ORDERED: propofoL 200 MG/20 ML VIAL IV ONE (13:29)
[2020-09-10] MEDS ORDERED: LIDOCAINE MPF (2%) 20 MG/1 ML VIAL 5 ML ONE (13:30)
[2020-09-10] MEDS ORDERED: LACTATED RINGERS 1,000 ML ONE (14:10)
[2020-09-10] MEDS ORDERED: LIDOCAINE 1%/EPINEPHRINE 1:100,000 VIAL (20 ML) INFILTRATI ONE (14:18)
[2020-09-10] MEDS ORDERED: BUPIVACAINE/PF (0.25%) 2.5 MG/ML 30 ML VIAL INFILTRATI ONE (14:18)
[2020-09-10] MEDS ORDERED: ceFAZolin/STERILE WATER 2 GM/20 ML SYRINGE IV NR (14:30)
[2020-09-10] MEDS ORDERED: SODIUM CHLORIDE 0.9% 1000 ML 1,000 ML IV SCH (14:30)
[2020-09-10] MEDS ORDERED: ceFAZolin/Water 2 GM/20 ML 2 GM/20 ML SYRINGE IV ONE (14:32)
--- NOTE | 2020-09-10 14:36 | Anesthesia Day of Surgery ---
Anesthesia Day of Surgery - Day of Surgery Patient Examined: Yes Patient H&P Reviewed: Yes Patient is NPO: Yes
--- NOTE | 2020-09-10 14:38 | Anesthesia Consultation ---
Anesthesia Consult and Med Hx Date of service: 09/10/20 - Airway Anesthetic Teeth Evaluation: Chipped, Crowns ROM Head & Neck: Adequate Mental/Hyoid Distance: Adequate Mallampati Class: Class II Intubation Access Assessment: Good - Pre-Operative Health Status ASA Pre-Surgery Classification: ASA2 Proposed Anesthetic Plan: Local (MAC/GA if needed) - Pulmonary Hx Smoking: Yes (former smoker now uses chewing tobacco) Hx Asthma: No Hx Respiratory Symptoms: No COPD: No Hx Pneumonia: No Hx Sleep Apnea: No ([place] PRE SCREEN LOW RISK) - Cardiovascular System Hx Hypertension: No Hx Coronary Artery Disease: No Hx Heart Attack/AMI: No Hx Angina: No Hx Percutaneous Transluminal Coronary Angioplasty (PTCA): No Hx Pacemaker: No Hx Internal Defibrillator: No Hx Valvular Heart Disease: No Hx Heart Murmur: No Hx Peripheral Vascular Disease: No - Central Nervous System Hx Seizures: No CVA: No Hx Back Pain: No Hx Psychiatric Problems: No - Gastrointestinal Hx Ulcer: No Hx Gastroesophageal Reflux Disease: Yes - Endocrine Hx Renal Disease: Yes (CKD) Hx End Stage Renal Disease: No Hx Cirrhosis: No Hx Liver Disease: No Hx Insulin Dependent Diabetes: No Hx Non-Insulin Dependent Diabetes: No Hx Thyroid Disease: No - Hematic Hx Anemia: No Hx Sickle Cell Disease: No - Other Systems Hx Alcohol Use: No Hx Substance Use: No Hx Cancer: Yes Hx Obesity: No
[2020-09-10] MEDS ORDERED: LIDOCAINE 2% UROJECT 10 ML JELLY ONE (14:40)
[2020-09-10] MEDS ORDERED: WATER FOR IRRIG STERILE 1,500 ML BOTTLE IR ONE (14:50)
[2020-09-10] MEDS ORDERED: LIDOCAINE 2% UROJECT 10 ML JELLY UR ONE (14:50)
--- NOTE | 2020-09-10 15:29 | Post Operative Note ---
Date of procedure: 09/10/20 Pre-op diagnosis: retained stent Post-op diagnosis: same Findings: mild narrowing Procedure: narrow bn hydro Anesthesia: GETA Surgeon: BERNADETTE CHEN Estimated blood loss: none Pathology: none Condition: stable Disposition: PACU
--- NOTE | 2020-09-10 15:31 | Discharge Summary ---
Short Stay Discharge Plan Activity: other (no straining ) Weight Bearing Status: Full Weight Bearing Diet: low fat, low cholesterol, low salt Special Instructions: other (inc fluids [place] care ) Durable Medical Equipment Needed Upon Discharge: other ([place]) Follow up with: [facility] [Primary Care Provider] - 7 Days
[2020-09-10] MEDS ORDERED: ONDANSETRON 4 MG ODT TAB PO PRN (16:00)
[2020-09-10] MEDS ORDERED: ACETAMINOPHEN 325 MG TAB PO PRN (16:00)
--- NOTE | 2020-09-10 16:31 | Fluoroscopy Report ---
FL retrograde urography Technique: Intraoperative fluoroscopic guidance was provided. Fluoroscopy time: 52. Fluoroscopy images: 4. Findings/Impression: Intraoperative fluoroscopic guidance for left retrograde pyelogram. Please see p rocedure report for further details. Signer Name: Venkata Allison MD Signed: 09/10/2020 4:27 PM Workstation Name: [id number]
[2020-09-10] MEDS ORDERED: KETOROLAC 30 MG/1 ML INJ ONE (16:45)
[2020-09-10] MEDS ORDERED: fentaNYL 100 MCG/2 ML INJ IV PRN (17:00)
[2020-09-10] MEDS ORDERED: KETOROLAC 30 MG/1 ML INJ IV PRN (17:00)
[2020-09-10] MEDS ORDERED: ZOLPIDEM 5 MG TAB PO PRN (22:00)
[2020-09-10] MEDS: ceFAZolin/NS 1 GM/50 ML 1 GM/50 ML BAG IV SCH (23:19)
[2020-09-10] MEDS: oxyCODONE /ACETAMINOPHEN 5-325MG TAB PO PRN (23:27)
[2020-09-11] MEDS: oxyCODONE /ACETAMINOPHEN 5-325MG TAB PO PRN (04:29)
[2020-09-11] MEDS: ceFAZolin/NS 1 GM/50 ML 1 GM/50 ML BAG IV SCH (06:35)
[2020-09-11 07:15] VITALS: BP 157/78
--- NOTE | 2020-09-11 09:36 | Operative Report ---
DATE OF SURGERY: 09/10/2020 PREOPERATIVE DIAGNOSIS: Retained stent, previous 1.5 cm left mid ureteral stone with chronic dilatation, poorly functioning left kidney post-radical prostatectomy. POSTOPERATIVE DIAGNOSIS: Retained stent, previous 1.5 cm left mid ureteral stone with chronic dilatation, poorly functioning left kidney post-radical prostatectomy with mild bladder neck narrowing and narrowed meatus. PROCEDURE: Urethral dilatation and extraction of stent, retrograde. SURGEON: Dion Irwin MD ANESTHESIA: General. DESCRIPTION OF FINDINGS: This is a gentleman who we tried to do this under local, but as soon as we touched his meatus and put in the Xylocaine gel, he kept yelling and screaming. We could not really touch him. We tried to even put a scope in the meatus. It was a little narrow, but would not allow it, was cursing and screaming. He now presents for under general. He was given medication. The meatus was entered and there was a little narrowing of the bladder neck. We placed a wire. We dilated the urethra without difficulty. The stent was seen. There was minimal encrustations along the stent distally and along the string. The stent was withdrawn. A retrograde showed a very dilated upper ureter, which I think was chronic. There was a little narrowing of and very delicate lower ureter, which was expected. The patient has had a stone and therefore, likely 1-2 years or more and rather than placing a stent because it is very difficult with this The patient, we will see how he does with this. There was some drainage, but the ureter is very dilated and this is a chronic condition. The patient tolerated the procedure well. A Councill catheter was placed. He was brought to recovery room in stable condition. No significant bleeding. We will keep him overnight because he takes the bus here from [facility]. TID: [id number] RECEIPT: [id number] ROMINA/ROSHAN
--- NOTE | 2020-09-11 13:06 | Progress Note ---
Assessment and Plan pt here in office aware may need left nephrectomy narrowed ureter no extrav pt aware other oprion is freq stent replacements has appt dr dwyer needs xrt will d/c catheter next week Subjective Date of service: 09/11/20 Principal diagnosis: hydro and cap Objective - Constitutional Vitals: Vital Signs - 12hr 09/11/20 09/11/20 04:21 07:08 Temperature 98.6 F 97.0 F L Pulse Rate 50 L 49 L Respiratory 20 18 Rate Blood Pressure 166/81 157/78 O2 Sat by Pulse 97 96 Oximetry General appearance: Present: no acute distress - Respiratory Respiratory effort: normal Medications & Allergies - Medications Allergies/Adverse Reactions: Allergies ciprofloxacin [From Cipro] Allergy (Verified 07/28/20 10:44) Swelling hydromorphone [From Dilaudid] Allergy (Verified 07/28/20 10:44) Itching Home Medications: Home Medications Medication Instructions Recorded Confirmed Last Taken Type No Known Home Medications [No 09/08/20 09/08/20 Unknown History Reported Home Medications] Active Medications: Generic Name Dose Route Start Last Admin Trade Name Sol PRN Reason Stop Dose Admin Acetaminophen 650 mg 09/10/20 16:00 Acetaminophen 325 Mg Tab PO Q4H PRN Pain, Mild (1-3)/Fever > 100.5 Sodium Chloride 1,000 mls @ 42 mls/hr 09/10/20 14:30 09/10/20 14:15 Nacl 0.9% 1000 Ml IV 42 mls/hr DIRECT JAVAD Administration Ondansetron HCl 4 mg 09/10/20 16:00 Ondansetron 4 Mg Odt Tab PO Q8H PRN Nausea And Vomiting Oxycodone/Acetaminophen 2 tab 09/10/20 16:00 09/11/20 04:29 Oxycodone /Acetaminophen 5-325mg Tab PO 2 tab Q6H PRN Administration Pain, Moderate (4-6) Zolpidem Tartrate 5 mg 09/10/20 22:00 Zolpidem 5 Mg Tab PO QHS PRN Sleep
--- NOTE | 2020-09-11 13:09 | Discharge Summary ---
Short Stay Discharge Plan Activity: other (no straining ) Special Instructions: other (pt came to office left on his own ) Durable Medical Equipment Needed Upon Discharge: other ([place]) Follow up with: [facility] [Primary Care Provider] - 7 Days
== END 2020-09-11 13:21 | disposition home or self-care (01) ==
LOC: OR 13:08 → 3B-SURG 15:32
PROVIDERS: ADMIT Urology; ATTEND Urology
DX: N17.9 Acute kidney failure, unspecified (principal); C61 Malignant neoplasm of prostate; N52.9 Male erectile dysfunction, unspecified; N13.2 Hydronephrosis with renal and ureteral calculous obstruction
CPT/HCPCS: 52310; 74420; 96361; 96365; 96366; 96375; C1758; C1769; G0378; J0690; J1885; J2704; J3010; J7120; Q9967